=== PATIENT | female | born 1990 | race Caucasian/White ===

== ENCOUNTER 2016-09-08 14:30 | Outpatient (CLI) | payer OTHER | END 2016-09-08 14:31 | DX: N93.9 Abnormal uterine and vaginal bleeding, unspecified (principal); Z32.01 Encounter for pregnancy test, result positive ==

== ENCOUNTER 2016-11-01 17:05 | Outpatient (CLI) | payer OTHER | END 2016-11-01 17:06 | disposition EMS.NT | LOC: EMS 17:05 | PROVIDERS: ATTEND Surgery | DX: O99.89 Other specified diseases and conditions complicating pregnancy, childbirth and the puerperium (principal); R56.9 Unspecified convulsions ==

== ENCOUNTER 2016-11-01 18:19 | Emergency (ER) | payer OTHER ==
--- NOTE | 2016-11-01 18:33 | ED Physician Documentation ---
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 Was switched a couple of months ago from Lamictal to oxcarbazepine because of poor control and because of . Had a single tonic-clonic seizure lasting 45 seconds today with complete return to normal. No injuries or incontinence.) Review of Systems Ten Systems: 10 systems reviewed and negative Constitutional: denies: Fever, Chills Cardiac: denies: Chest pain / pressure, Palpitations Respiratory: denies: Dyspnea, Cough PD PAST MEDICAL HISTORY - Present Medications Home Medications: Ambulatory Orders Medication Instructions Recorded Confirmed OXcarbazepine [Trileptal] 11/01/16 - Allergies Allergies/Adverse Reactions: Allergies Allergy/AdvReac Type Severity Reaction Status Date / Time No Known Drug Allergies Allergy Verified 11/01/16 18:36 PD ED PE NORMAL - Vitals Vital signs reviewed: Yes - General General: Alert and oriented X 3, No acute distress - HEENT HEENT: PERRL, EOMI, Other (Small abrasion left lower lip) - Neck Neck: Supple, no meningeal sign, No bony TTP - Cardiac Cardiac: RRR, No murmur - Respiratory Respiratory: No respiratory distress, Clear bilaterally - Abdomen Abdomen: Soft, Non tender, Other (Bedside ultrasound demonstrates single live intrauterine with heart rate of 146) - Extremities Extremities: No edema - Neuro Neuro: Alert and oriented X 3, boat garnisher 2-12 intact, No motor deficit, No sensory deficit, Normal speech - Psych Psych: Normal mood, Normal affect Results - Vitals Vitals: Vital Signs - 24 hr 11/01/16 11/01/16 18:20 19:12 Temperature 36.3 C L Heart Rate 97 81 Respiratory 16 16 Rate Blood Pressure 131/75 H 108/62 O2 Saturation 97 99 Oxygen O2 Source Room air - Labs Labs: Laboratory Tests 11/01/16 11/01/16 18:43 18:50 Sodium 135 Potassium 3.4 L Chloride 102 Carbon Dioxide 26 Anion Gap 7.0 BUN 8 Creatinine 0.5 Estimated GFR (MDRD) 152 Glucose 145 H Calcium 8.9 Total Bilirubin 0.4 AST 26 ALT 30 Alkaline Phosphatase 46 Total Protein 6.5 L Albumin 3.4 Globulin 3.1 Albumin/Globulin Ratio 1.1 Lipase 29 Urine Color YELLOW Urine Clarity CLEAR Urine pH 6.5 Ur Specific Davin 1.020 Urine Protein NEGATIVE Urine Glucose (UA) NEGATIVE Urine Ketones NEGATIVE Urine Occult Blood NEGATIVE Urine Nitrite NEGATIVE Urine Bilirubin NEGATIVE Urine Urobilinogen 0.2 (NORMAL) Ur Leukocyte Esterase SMALL H Urine RBC 0-5 Urine WBC 0-3 Ur Squamous Epith Cells MOD Squamous H Urine Bacteria Few Ur Microscopic Review INDICATED Urine Culture Comments NOT INDICATED PD MEDICAL DECISION MAKING - ED course ED course: SPOKE WITH DR DELGADO AT [facility], WHO RECOMMENDS NO CHANGES NOW AND TO FOLLOWUP WITH HER EPILEPTOLOGIST. Departure - Departure Disposition: 01 Home, Self Care Clinical Impression: Grand mal seizure Qualifiers: Weeks of gestation: 16 weeks Qualified Code(s): Z3A.16 - 16 weeks gestation of Condition: Good Record reviewed to determine appropriate education?: Yes Instructions: ED Seizure Recurrent Comments: CONTINUE CURRENT MEDICATIONS AND CALL DR SOTO FOR A FOLLOWUP APPOINTMENT. KEEP A REGULAR SLEEPING AND EATING SCHEDULE.
[2016-11-01 19:00] LABS: BILIRUBIN,URINE NEGATIVE (NEGATIVE); PH,URINE 6.5 PH (5.0-7.5)
[2016-11-01 19:08] LABS: ALBUMIN/GLOBULIN RATIO 1.1 (1.0-2.2); BILIRUBIN,TOTAL 0.4 mg/dL (0.2-1.0); CALCIUM 8.9 mg/dL (8.5-10.3); CREATININE 0.5 mg/dL (0.4-1.0); POTASSIUM 3.4 mmol/L (3.5-5.0); TOTAL PROTEIN 6.5 g/dL (6.7-8.2)
[2016-11-01 19:10] LABS: UA w/ MICROSCOPIC CHARGE YES; WBC,URINE 0-3 /HPF (0-5)
[2016-11-01 19:11] LABS: UR CULTURE IF IND NOT INDICATED
[2016-11-01 19:13] VITALS: BP 108/62
== END 2016-11-01 19:57 | disposition home or self-care (01) ==
LOC: ED 18:19
DX: O26.892 Other specified pregnancy related conditions, second trimester (principal); G40.409 Other generalized epilepsy and epileptic syndromes, not intractable, without status epilepticus; Z3A.16 16 weeks gestation of pregnancy
CPT/HCPCS: 36415; 80053; 81001; 81003; 83690; 87086; 99284